=== PATIENT | female | born 1995 | race Caucasian/White ===

== ENCOUNTER 2017-02-03 14:50 | Emergency (ER) | payer BC ==
[~2017-02-03] VITALS: Ht 162.6 cm; Wt 64.0 kg
[2017-02-03 14:56] VITALS: TEMP 36.9; Ht 162.6 cm; Wt 64.0 kg
[2017-02-03] MEDS ORDERED: BCPILLS PO (15:13)
--- NOTE | 2017-02-03 15:33 | DIAGNOSTIC IMAGING REPORT ---
L FOOT MIN 3 VIEWS ROUTINE CLINICAL HISTORY: Left foot pain COMPARISON: None. DISCUSSION: No fractures or dislocations are visualized. There are no erosive changes. IMPRESSION: No fractures identified. Electronically signed by: Ruy Briggs M.D. 02/03/2017 3:31 PM Dictated Date/Time: 02/03/2017 3:30 PM
[2017-02-03 16:30] VITALS: BP 116/65; PULSE 59; O2SAT 99
--- NOTE | 2017-02-04 12:49 | EMERGENCY ROOM VISIT NOTE ---
ED Visit Note First contact with patient: 14:59 Chief Complaint: I'm having left foot pain. History of Present Illness: Ms. Sánchez is a 21-year-old white female who ambulates into the ED accompanied by male friend complaining of left mid foot pain. Historically patient denies any previous significant injuries or surgeries to her foot. Patient does report this semester she is taking a physical education course involving running. She reports for the last few weeks she has been having pain over the superior aspect of the left midfoot. She describes it as an achiness sensation. She rates her discomfort 5/10. Her pain is nonradiating. Her pain worsens after her class. She also has mild relief with rest. She has not taken any medications for her discomfort prior to arrival at the hospital. She denies any associated symptoms including knee pain, calf pain, ankle pain, toe pain, foot weakness/numbness/tingling. Review of Systems: As noted above in history of present illness. Past Medical History: Status post wisdom teeth extraction. Current Medications: control. Allergies to Medications: Patient denies. Social History: Patient is not employed; she feels safe in her home environment ; she denies tobacco use and admits to alcohol use. Physical Examination: Vital Signs: Date Time Temp Pulse Resp B/P (MAP) Pulse Ox O2 Delivery O2 Flow Rate FiO2 02/03/17 16:30 59 16 116/65 99 02/03/17 14:56 36.9 82 18 156/87 98 Room Air GENERAL: 21-year-old male in mild distress due to pain, nontoxic-appearing, afebrile and hemodynamically stable. NEUROLOGICAL: Awake, alert and oriented to person, place and time. Answering questions appropriately and following commands. Normal gait. Good hand eye coordination. SKIN: Warm, dry and pink. No soft tissue eruptions or trauma noted. LEFT LOWER EXTREMITY: No gross bony deformity. No tenderness in the knee, calf , ankle or toes. Mild tenderness over the navicular, medial and middle cuboid tarsals without bony deformity or crepitus. There is minimal local swelling but no erythema. Patient has full range of motion in plantar flexion and dorsiflexion of the ankle and flexion and extension of all toes against resistance. Throughout the foot the skin was warm and pink and capillary refill is brisk. She is able to distinguish light sensations through all dermatomes. No calf tenderness or cords. ED Course: Patient is assessed as noted above. Patient's medication list was reviewed. Left foot x-rays: Were read by myself and the radiologist and shows no acute fractures or dislocations. No erosive or degenerative changes. Patient was offered pain medication and refused. Patient was offered postop shoe and nonweightbearing crutches and refused. Patient was educated about tonight's findings and instructed on her treatment plan; she verbalizes understanding and agreement with this plan. Just prior to discharge patient did request a prescription for nonweightbearing crutches; I did give her one. Clinical Impression: Left foot pain. Decision-Making: Initially my differential diagnosis I considered tendinitis, stress fracture, ligamentous sprain, other types of fractures and other causes. Disposition: Patient discharged home in stable condition accompanied by her boyfriend; prior to departure she was reassessed and subjectively reported she was feeling the same. Plan: Comfort measures were discussed with the patient including rest, ice, elevation. Patient was encouraged to follow-up with orthopedics if no better in 7-10 days. Patient was encouraged to return to the ED for worsening/uncontrolled pain, uncontrolled swelling, foot weakness/numbness/tingling or any new/concerning symptoms.
== END 2017-02-03 16:31 | disposition home or self-care (01) ==
LOC: C.EDB 14:52 → C.EDD 16:31
DX: M79.672 Pain in left foot (principal); Z79.3 Long term (current) use of hormonal contraceptives